=== PATIENT | female | born 1985 | race Caucasian/White ===

== ENCOUNTER → 2019-07-17 | Outpatient (CLI) | payer OTHER ==
[2016-02-23 23:29] VITALS: BP 133/75
--- NOTE | 2019-07-17 17:41 | RAD ---
EXAM: 3 Views Left Shoulder DATE: 07/17/2019 12:00 AM INDICATION: LEFT SHOULDER PAIN. NO KNOWN INJURY COMPARISON: No Prior FINDINGS: There is no evidence for acute fracture or dislocation. AC joint is congruent. Humeral head is not high riding. IMPRESSION: 1. No acute fracture or dislocation. Electronically signed by: Salvador Waters MD (07/17/2019 5:39 PM) [facility]
== END | disposition home or self-care (01) ==
LOC: RAD 12:30
PROVIDERS: ATTEND Nurse Practitioner Family
DX: M25.512 Pain in left shoulder (principal)
CPT/HCPCS: 73030

== ENCOUNTER → 2019-07-24 | Outpatient (CLI) | payer OTHER ==
[2016-02-23 23:29] VITALS: BP 133/75
--- NOTE | 2019-07-24 16:03 | KCIC ---
MR of the left shoulder HISTORY: Left shoulder pain and weakness. Pain is chronic, worse the last couple weeks. TECHNIQUE: Routine multiplanar sequences are obtained. FINDINGS: Acromioclavicular joint is intact. No evidence of rotator cuff tear. No significant subdeltoid bursal effusion. No significant joint effusion. No acute articular cartilage defect. No evidence of labral tear or detachment. Biceps tendon is intact. No acute fracture. No bone destruction. No acute soft tissue abnormality. IMPRESSION: No acute abnormality or internal derangement. Electronically signed by: Dax Amaya MD (07/24/2019 4:00 PM) [id number]
== END | disposition home or self-care (01) ==
LOC: KCIC MRI 14:26
PROVIDERS: ATTEND Nurse Practitioner Family
DX: M25.512 Pain in left shoulder (principal); R29.898 Other symptoms and signs involving the musculoskeletal system
CPT/HCPCS: 73221

== ENCOUNTER → 2020-04-02 | Outpatient (CLI) | payer OTHER ==
[2016-02-23 23:29] VITALS: BP 133/75
== END | disposition home or self-care (01) ==
LOC: SPEC 11:53
PROVIDERS: ATTEND Obstetrics & Gynecology
DX: Z01.419 Encounter for gynecological examination (general) (routine) without abnormal findings (principal); R87.610 Atypical squamous cells of undetermined significance on cytologic smear of cervix (ASC-US)
CPT/HCPCS: 87623; 88175

== ENCOUNTER → 2020-10-05 | Outpatient (CLI) | payer OTHER ==
[2016-02-23 23:29] VITALS: BP 133/75
--- NOTE | 2020-10-05 09:50 | RAD ---
Examination: ABDOMEN LTD History: Reason: RUQ Post Prandial pain; Eval for Cholelithiasis / Spl. Instructions: / History: Comparison/Correlation: None Findings: Limited right upper quadrant ultrasound exam was performed. Hepatic echotexture is within normal limits. Gallbladder wall thickness is within normal limits. No cholelithiasis. No pericholecystic fluid. No biliary dilatation. Common bile duct is unremarkable. Liver length is normal. Proximal pancreas is normal. Distal pancreas is obscured by bowel gas. Right kidney measures 10.2 cm x 4.8 cm x 4.2 cm. No right hydronephrosis. Right renal superior pole cyst measures 1.1 cm diameter and appears to have internal echoes. Right renal inferior pole is obscured by bowel gas. Inferior vena cava and abdominal aorta are unremarkable. No right upper quadrant ascites. Impression: No cholelithiasis or suspicious acute findings. Right renal superior pole mildly complex cyst is present. Interval follow-up ultrasound examination in 6 months to assess stability is recommended. Electronically signed by: Sunny Olson MD (10/05/2020 9:47 AM) [id number]
== END ==
LOC: US 09:22
PROVIDERS: ATTEND Internal Medicine Gastroenterology
DX: N28.1 Cyst of kidney, acquired (principal)
CPT/HCPCS: 76705

== ENCOUNTER → 2020-10-20 | Outpatient (CLI) | payer OTHER ==
[2016-02-23 23:29] VITALS: BP 133/75
[2020-10-20 16:25] LABS: BASO % 1 % (0-3); EOS # 0.2 x10^3/uL (0.0-0.7); EOS % 3 % (0-3); HEMATOCRIT 38.9 % (36.0-47.0); HEMOGLOBIN 13.5 g/dL (12.0-15.5); LYMPH # 1.5 x10^3/uL (1.0-4.8); LYMPH % 26 % (24-48); MEAN CORPUSCULAR HEMOGLOBIN 30 pg (25-35); MEAN CORPUSCULAR HGB CONC 35 g/dL (31-37); MEAN CORPUSCULAR VOLUME 87 fL (79-100); MONO # 0.5 x10^3/uL (0.0-1.1); MONO % 9 % (0-9); NEUT # 3.5 x10^3/uL (1.8-7.7); NEUT % 62 % (31-73); PLATELET COUNT 216 x10^3/uL (140-400); RED BLOOD COUNT 4.48 x10^6/uL (3.50-5.40); RED CELL DISTRIBUTION WIDTH 12.6 % (11.5-14.5); WHITE BLOOD COUNT 5.7 x10^3/uL (4.0-11.0)
== END ==
LOC: LAB 16:06
PROVIDERS: ATTEND Nurse Practitioner Gerontology
DX: R59.9 Enlarged lymph nodes, unspecified (principal)
CPT/HCPCS: 36415; 85025